=== PATIENT | female | born 1950 | race Caucasian/White ===

== ENCOUNTER → 2023-05-01 14:22 | Outpatient (REF) | payer MEDICARE, OTHER, SELFPAY | LOC: WDC 14:22 | PROVIDERS: ATTENDING PHYSICIAN Family Medicine | DX: Z12.31 Encounter for screening mammogram for malignant neoplasm of breast (principal) | CPT/HCPCS: 77063; 77067 ==

== ENCOUNTER 2023-06-23 03:57 | Emergency (ER) | payer MEDICARE, OTHER, SELFPAY ==
[2023-06-23 04:00] VITALS: BP 149/94
[2023-06-23 04:12] VITALS: BMI 26.4
[2023-06-23 04:23] VITALS: BP 139/88
[2023-06-23 04:33] LABS: % Basophils 0.6 % (0-2); % Eosinophils 1.7 % (0-6); % Immature Granulocytes 0.7 % (0-0.5); % Lymphocytes 14.5 % (20.5-51.1); % Monocytes 11.7 % (1.7-9.3); % Neutrophils 70.8 % (42.2-75.2); Absolute Basophils 0.1 10^3/uL (0-0.2); Absolute Eosinophils 0.2 10^3/uL (0-0.7); Absolute Immature Granulocytes 0.1 10^3/uL (0-0.05); Absolute Lymphocytes 1.6 10^3/uL (1.2-3.4); Absolute Monocytes 1.3 10^3/uL (0.1-0.6); Hematocrit 38.3 % (37.0-47.0); Hemoglobin 13.4 g/dL (12.0-16.0); Mean Corpuscular Volume 88.7 fL (81.0-99.0); Mean Platelet Volume 10.2 fL (7.4-10.4); Nucleated Red Blood Cells % 0 %; Platelet Count 223 10^3/uL (130-400); Red Blood Cell Count 4.32 10^6/uL (4.20-5.40); Red Cell Dist. Width 12.5 % (11.5-14.5); White Blood Cell Count 11.3 10^3/uL (4.8-10.8)
[2023-06-23 04:59] LABS: ALT (SGPT) 23 U/L (0-35); AST (SGOT) 30 U/L (14-36); Albumin 3.9 g/dl (3.5-5.0); Alkaline Phosphatase 70 U/L (38-126); Blood Urea Nitrogen 19 mg/dl (7-17); Calcium 9.9 mg/dl (8.4-10.2); Carbon Dioxide 28 mmol/L (22-30); Chloride 109 mmol/L (98-107); Estimated Creatinine Clearance 47 ml/min; Glucose 113 mg/dl (70-99); Lipase 70 U/L (23-300); Potassium 4.4 mmol/L (3.5-5.1); Sodium 139 mmol/L (135-145); Total Bilirubin 0.4 mg/dl (0.2-1.3); Total Protein 6.4 g/dl (6.3-8.2); eGFR > 60.00
[2023-06-23 05:00] VITALS: BP 131/79
[2023-06-23 05:55] LABS: Urine Albumin 1+ (Neg - Trace); Urine Bilirubin Negative (Negative); Urine Character Clear (Clear); Urine Color Straw; Urine Glucose Negative (Negative); Urine Ketone Negative (Negative); Urine Leukocyte Trace (Negative); Urine Nitrite Positive (Negative); Urine Occult Blood Negative (Negative); Urine Urobilinogen Negative (Neg - 1+)
[2023-06-23 06:00] VITALS: BP 132/80
--- NOTE | 2023-06-23 06:14 | ED.GENMED ---
History of Present Illness
General
Chief Complaint: Abdominal Pain
Source: patient
Time Seen by Provider: 06/23/23 06:02
Travel History
Have you had any contact with someone who has COVID-19?: No
Do you have any symptoms of coronavirus? Fever > 100 degrees, chills, cough, shortness of breath, sore throat, loss of taste or smell, muscle aches, or headache?: No
History of Present Illness
History of Present Illness:
73-year-old female presents to the emergency room complaining of abdominal pain. Patient began after dinner around 6 PM. Pain has been constant. It is fairly significant. Patient has nausea but has not vomited. Patient does have a surgical
history of a cholecystectomy a couple years ago as well and has a laparoscopic tubal ligation many years ago. She took Gas-X without any improvement.
Past History
Past History
ED Past Medical History: Asthma
ED Past Surgical History: Negative Cardiac
Social History
Tobacco: Non-smoker
Alcohol: None
Drug: None
Personal:
Living: with family
Employment: Retired
Family History
Family History: Negative Early CAD
Phy Exam
Physical Exam
Physical Exam:
General: Awake, Alert, Oriented X3. Patient peers uncomfortable
Vitals: unremarkable
Head: Atraumatic
Eyes: Pupils equal, EOMI
Throat: Airway intact, no exudates, dry mucosa
Neck: Trachea midline
Lungs: Clear and equal b/l
Heart: Regular rate, no murmurs
Abd: Soft, moderately tender to palpation but no rebound, No pulsatile mass
Neuro: Nonfocal
Skin: Warm, dry, no rash
Extremities: pulses equal b/l, no edema
Course
Orders/Labs/Results
Orders:
Orders
06/23/23 04:11
IV Insert/Care/Rem.- Treatment PRN
06/23/23 04:22
Complete Blood Count/With Diff Urgent
Comprehensive Metabolic Panel Urgent
Lipase Urgent
06/23/23 04:25
ECG [Electrocardiogram (*1)] Routine
Reason for Study: Abdominal Pain
06/23/23 04:26
EKG- Treatment ONCE
06/23/23 05:42
UA Reflex to Culture [Urinalysis Reflex To Culture] Urgent
Date Specimen was Collected: 06/23/23
Time Specimen was Collected: 05:40
Urine Microscopic Reflex Cult Urgent
Urine Culture Urgent
MAGALIS Source: U
Specimen Description:
Date Specimen was Collected: 06/23/23
Time Specimen was Collected: 05:40
06/23/23 06:13
0.9% Sodium Chloride 1000 ml [Nss] 1,000 ml IV BOLUS
HYDROmorphone [Dilaudid] 0.5 mg IV NOW STA
Iohexol [Omnipaque] See Protocol PO NOW STA
Ondansetron Injectable [Zofran] 4 mg IV NOW STA
06/23/23 06:14
CT Abd/pel W Iv And Oral Contr Urgent
Comment:
Reason For Exam: central abdominal pain
06/23/23 07:48
Ondansetron Injectable [Zofran] 4 mg .ROUTE .STK-MED ONE
06/23/23 07:49
Ondansetron Injectable [Zofran] 4 mg IV NOW STA
06/23/23 10:11
Lactulose [Duphalac/Chronulac] 20 grams PO NOW STA
06/23/23 11:08
Enema- Treatment ONCE
Type: Milk of Molasses
06/23/23 11:24
Ibuprofen [Motrin] 600 mg .ROUTE .STK-MED ONE
06/23/23 12:06
Ibuprofen [Motrin] 600 mg PO NOW STA
Abnormal Lab Results
06/23/23 06/23/23
04:22 05:42
WBC 11.3 H 10^3/uL
(4.8-10.8)
Abs Immat Gran (auto) 0.1 H 10^3/uL
(0-0.05)
Absolute Neuts (auto) 8.0 H 10^3/uL
(1.4-6.5)
Absolute Monos (auto) 1.3 H 10^3/uL
(0.1-0.6)
Immature Gran % 0.7 H %
(0-0.5)
Lymphocytes % 14.5 L %
(20.5-51.1)
Monocytes % 11.7 H %
(1.7-9.3)
Chloride 109 H mmol/L
(98-107)
BUN 19 H mg/dl
(7-17)
Glucose 113 H mg/dl
(70-99)
Urine Nitrite (Reflex) Positive A
(Negative)
Leukocyte Esterase Rfl Trace A
(Negative)
Urine Bacteria (Reflex) Moderate A
(Negative)
Urine Albumin (Reflex) 1+ A
(Neg - Trace)
06/23/23 04:22
06/23/23 04:22
Vital Signs
Initial and Last Documented VS:
Initial Vital Signs
Temp Pulse Resp BP Pulse Ox
98.1 F 85 24 149/94 98
06/23/23 04:00 06/23/23 04:00 06/23/23 04:00 06/23/23 04:00 06/23/23 04:00
Last Documented Vital Signs
Temp Pulse Resp BP Pulse Ox
98.1 F 85 24 115/75 93
06/23/23 04:00 06/23/23 04:00 06/23/23 04:00 06/23/23 08:00 06/23/23 08:45
MDM/Problems Addressed
Differential Diagnosis Includes:
Diverticulitis, small bowel obstruction, colitis
MDM/Problems Addressed:
Patient's labs are reassuring. CT does not show any acute inflammatory disease. My personal review of the CAT scan noted stool throughout the large intestine. I suspect the patient's symptoms are related to constipation. Patient was given a dose
of lactulose and a delta molasses enema with significant results. Patient feels tremendously better. She is stable for discharge home.
*Radiology
Radiology exam reviewed: radiology read reviewed
*Pulse Oximetry
Patient hypoxic: no
*EKG
Interpreted by ED Provider?: Yes
Interpretation: normal
Heart Rate: 76
Rate: normal
Rhythm: sinus
[place]: normal axis
Interval: normal interval
QRS Pattern: normal QRS
Ischemia: no ischemia
*Mechanical Test Technician Interpretation
Rate: normal
Interpretation: normal
Heart Rate: 76
Rhythm: sinus
*Critical Care Note
Total Time (30-74mins, 75-104mins- exclusive of procedures): Not Applicable
ED Attending Note
-
Portions of this chart may have been created with voice recognition software.� Occasional wrong word or��sound alike� substitutions may have occurred due to the inherent limitations of voice recognition software.
Discharge Plan
Departure
Patient Disposition: Home (Routine Discharge)
Date of Disposition: 06/23/23
Time of Disposition: 13:22
Patient with high blood pressure during this ER visit?: No
Condition: Good
Discharge Problem:
Abdominal pain, Constipation
Instructions: Constipation, Adult (DC), Abdominal Pain
Prescriptions:
No Action
albuterol sulfate 2.5 MG/3 ML solution for nebulization
2.5 mg inhalation R Q4HPRN PRN (Reason: cough) Qty: 20 0RF
fluticasone furoate-vilanterol [Breo Ellipta] 100-25 mcg/dose Blister With Device
1 inh INHALATION DAILY
omeprazole 40 mg Capsule,Delayed Release(Dr/Ec)
40 mg PO DAILY
valacyclovir 1 gram Tablet
1 mg PO Q12 PRN (Reason: Breakouts)
sumatriptan succinate [Imitrex] 100 mg Tablet
100 mg PO DAILY PRN (Reason: Migraine)
docusate sodium [Colace] 100 mg Capsule
100 mg PO DAILY
albuterol sulfate [ProAir HFA] 90 mcg/actuation Hfa Aerosol Inhaler
1 puff INHALATION Q4
omega-3 fatty acids Capsule
1 cap PO DAILY
Spiriva with HandiHaler 18 mcg Capsule, W/Inhalation Device
1 cap INHALATION DAILY
magnesium malate, chelate 125 mg magnesium Capsule
250 mg PO Daily
oxycodone-acetaminophen 5-325 mg Tablet
1 tab PO Q4HPRN PRN (Reason: pain) Qty: 10 0RF
prochlorperazine maleate [Compazine] 10 mg tablet
10 mg PO TID PRN (Reason: nausea and vomiting) Qty: 10 0RF
Referrals:
Chica Fuentes DO [Family Provider] -
Activity Restrictions/Additional Instructions:
You were seen in the emergency room for abdominal pain. Fortunately your blood work and your CAT scan showed no evidence of a unstable or emergent process. There is no evidence for urinary tract infection. It does appear that you have stool
throughout your colon on the CAT scan suggesting constipation. I suggest starting MiraLAX 1 capful a day for the next several days. Call your family doctor.
Interventions
Interventions:
*Risk Screen - Suicide Last Done: 06/23/23 04:00
*General Assessment Last Done: 06/23/23 04:00
*Neglect/Abuse Screening Last Done: 06/23/23 04:00
ED- Fall Risk Assessment Last Done: 06/23/23 04:00
*ED COVID-19 Vaccine History Last Done: 06/23/23 04:00
SU-Nbkikw-Yloxpjejgd Assessment Last Done: 06/23/23 04:33
Discharge Date and Time
Print Language: [id number]
[2023-06-23] MEDS: ZOFRAN 4 MG IV ×2 (06:22→07:50)
[2023-06-23] MEDS: DILAUDID 0.5 MG IV (06:23)
[2023-06-23] MEDS: OMNIPAQUE 50 ML PO (06:27)
[2023-06-23] MEDS: NSS 1000 IV (06:27)
[2023-06-23 06:32] LABS: Urine Bacteria Moderate (Negative); Urine Red Blood Cell None Seen /HPF (0-2)
[2023-06-23 07:00] VITALS: BP 114/79
[2023-06-23 08:00] VITALS: BP 115/75
[2023-06-23] MEDS: DUPHALAC/CHRONULAC 20 GRAMS PO (11:18)
[2023-06-23] MEDS: MOTRIN 600 MG PO (12:09)
== END 2023-06-23 13:00 | disposition home or self-care (01) ==
LOC: EMR 03:57
PROVIDERS: Emergency Medicine; EMERGENCY PHYSICIAN Emergency Medicine; FAMILY PHYSICIAN Family Medicine
DX: R10.9 Unspecified abdominal pain (principal); J45.909 Unspecified asthma, uncomplicated; Z90.49 Acquired absence of other specified parts of digestive tract; Z98.51 Tubal ligation status
CPT/HCPCS: 99284; 96374; 96375; 96376; 96361; 74177; 80053; 81003; 81015; 83690; 85025; 87077; 87086; 87186; 93005; Q9967

== ENCOUNTER → 2023-07-16 07:31 | Outpatient (REF) | payer MEDICARE, OTHER, SELFPAY ==
[2023-07-16 08:16] LABS: % Basophils 1.4 % (0-2); % Eosinophils 2.5 % (0-6); % Immature Granulocytes 0.7 % (0-0.5); % Lymphocytes 29.1 % (20.5-51.1); % Monocytes 9.2 % (1.7-9.3); % Neutrophils 57.1 % (42.2-75.2); Absolute Basophils 0.1 10^3/uL (0-0.2); Absolute Eosinophils 0.2 10^3/uL (0-0.7); Absolute Immature Granulocytes 0.1 10^3/uL (0-0.05); Absolute Lymphocytes 2.1 10^3/uL (1.2-3.4); Absolute Monocytes 0.7 10^3/uL (0.1-0.6); Absolute Neutrophils 4.2 10^3/uL (1.4-6.5); Hematocrit 40.2 % (37.0-47.0); Hemoglobin 13.2 g/dL (12.0-16.0); Mean Corp Hgb Conc. 32.8 g/dL (33.0-37.0); Mean Corpuscular Hgb 30.8 pg (27.0-31.0); Mean Corpuscular Volume 93.7 fL (81.0-99.0); Mean Platelet Volume 10.3 fL (7.4-10.4); Nucleated Red Blood Cells % 0 %; Platelet Count 281 10^3/uL (130-400); Red Blood Cell Count 4.29 10^6/uL (4.20-5.40); Red Cell Dist. Width 12.5 % (11.5-14.5); White Blood Cell Count 7.3 10^3/uL (4.8-10.8)
[2023-07-16 09:01] LABS: ALT (SGPT) 18 U/L (0-35); AST (SGOT) 23 U/L (14-36); Albumin 3.9 g/dl (3.5-5.0); Alkaline Phosphatase 57 U/L (38-126); Blood Urea Nitrogen 17 mg/dl (7-17); Carbon Dioxide 31 mmol/L (22-30); Chloride 106 mmol/L (98-107); Glucose 99 mg/dl (70-99); HDL Cholesterol 80 mg/dl; LDL Cholesterol, Calculated 131 mg/dl; Potassium 4.9 mmol/L (3.5-5.1); Sodium 142 mmol/L (135-145); Total Bilirubin 0.5 mg/dl (0.2-1.3); Total Cholesterol 236 mg/dl (50-199); Total Protein 6.4 g/dl (6.3-8.2); Triglyceride 128 mg/dl (10-149); Very Low Density Lipoprotein 25 mg/dl (0-30); eGFR > 60.00
[2023-07-16 09:19] LABS: Vitamin D, 25-OH*** 48.5 ng/mL (30-80)
== END ==
LOC: REG 07:31
PROVIDERS: ATTENDING PHYSICIAN Family Medicine
DX: M81.0 Age-related osteoporosis without current pathological fracture (principal); K21.00 Gastro-esophageal reflux disease with esophagitis, without bleeding; Z13.220 Encounter for screening for lipoid disorders; Z79.899 Other long term (current) drug therapy
CPT/HCPCS: 36415; 80053; 80061; 82306; 85025

== ENCOUNTER → 2023-07-17 16:17 | Outpatient (REF) | payer MEDICARE, OTHER, SELFPAY ==
[2023-07-17 16:59] LABS: Urine Albumin Negative (Neg - Trace); Urine Bilirubin Negative (Negative); Urine Character Clear (Clear); Urine Color Straw; Urine Glucose Negative (Negative); Urine Ketone Negative (Negative); Urine Leukocyte 1+ (Negative); Urine Nitrite Negative (Negative); Urine Occult Blood Negative (Negative); Urine Specific Gravity 1.005 (<1.030); Urine Urobilinogen Negative (Neg - 1+)
[2023-07-17 17:11] LABS: Urine Squamous Cell 0-2 /LPF (Few)
[2023-07-17 17:12] LABS: Urine Red Blood Cell 0-2 /HPF (0-2)
[2023-07-17 17:14] LABS: Urine Bacteria Few (Negative)
== END ==
LOC: REG 16:17
PROVIDERS: ATTENDING PHYSICIAN Nurse Practitioner Family
DX: R35.0 Frequency of micturition (principal)
CPT/HCPCS: 81003; 81015; 87086

== ENCOUNTER → 2023-09-10 09:12 | Outpatient (REF) | payer MEDICARE, OTHER, SELFPAY ==
[2023-09-10 10:29] LABS: ALT (SGPT) 20 U/L (0-35); AST (SGOT) 23 U/L (14-36); Albumin 4.1 g/dl (3.5-5.0); Alkaline Phosphatase 56 U/L (38-126); Blood Urea Nitrogen 18 mg/dl (7-17); Calcium 10.1 mg/dl (8.4-10.2); Carbon Dioxide 29 mmol/L (22-30); Chloride 105 mmol/L (98-107); Glucose 102 mg/dl (70-99); Potassium 4.4 mmol/L (3.5-5.1); Sodium 140 mmol/L (135-145); Total Bilirubin 0.6 mg/dl (0.2-1.3); Total Protein 6.4 g/dl (6.3-8.2); eGFR > 60.00
[2023-09-10 11:50] LABS: Vitamin D, 25-OH*** 44.8 ng/mL (30-80)
== END ==
LOC: REG 09:12
PROVIDERS: ATTENDING PHYSICIAN Internal Medicine Rheumatology; FAMILY PHYSICIAN Family Medicine
DX: E55.9 Vitamin D deficiency, unspecified (principal); M81.0 Age-related osteoporosis without current pathological fracture
CPT/HCPCS: 36415; 80053; 82306

== ENCOUNTER 2023-10-07 06:29 | Day surgery (SDC) | payer MEDICARE, OTHER, SELFPAY ==
[2023-10-07] VITALS (13 sets, daily range): BP systolic 117–160; BP diastolic 75–119; BMI 25.6
[2023-10-07] MEDS: Pyridium 200 MG PO (11:31)
[2023-10-07] MEDS: NORMOSOL-R 1000 IV (12:06)
[2023-10-07] MEDS: SUBLIMAZE 50 MCG IV ×2 (15:09→15:31)
[2023-10-07] MEDS: DILAUDID 0.5 MG IV (15:47)
[2023-10-07] MEDS: ROXICODONE 5 MG PO (17:59)
== END 2023-10-07 19:30 | disposition home or self-care (01) ==
LOC: SDS 06:29
PROVIDERS: ATTENDING PHYSICIAN Obstetrics & Gynecology
DX: N81.2 Incomplete uterovaginal prolapse (principal); N39.3 Stress incontinence (female) (male); R39.15 Urgency of urination
CPT/HCPCS: 57282; 57250; 86850; 86900; 86901

== ENCOUNTER → 2024-01-06 08:28 | Outpatient (REF) | payer MEDICARE, OTHER, SELFPAY ==
[2024-01-06 09:32] LABS: Free T4 0.98 ng/dl (0.78-2.19)
[2024-01-06 09:46] LABS: TSH 2.48 uIU/ml (0.47-4.68)
== END ==
LOC: RAD 08:28
PROVIDERS: ATTENDING PHYSICIAN Family Medicine
DX: M25.562 Pain in left knee (principal); M25.561 Pain in right knee; R63.5 Abnormal weight gain
CPT/HCPCS: 36415; 73564; 84439; 84443

== ENCOUNTER → 2024-02-06 09:13 | Outpatient (REF) | payer MEDICARE, OTHER, SELFPAY | LOC: RAD 09:13 | PROVIDERS: ATTENDING PHYSICIAN Internal Medicine Rheumatology; FAMILY PHYSICIAN Family Medicine | DX: M81.0 Age-related osteoporosis without current pathological fracture (principal) | CPT/HCPCS: 77080 ==

== ENCOUNTER → 2024-02-27 08:57 | Outpatient (REF) | payer MEDICARE, OTHER, SELFPAY ==
[2024-02-27 09:55] LABS: % Basophils 1.7 % (0-2); % Eosinophils 2.6 % (0-6); % Immature Granulocytes 0.7 % (0-0.5); % Lymphocytes 26.1 % (20.5-51.1); % Monocytes 10.2 % (1.7-9.3); % Neutrophils 58.7 % (42.2-75.2); Absolute Basophils 0.1 10^3/uL (0-0.2); Absolute Eosinophils 0.2 10^3/uL (0-0.7); Absolute Immature Granulocytes 0.1 10^3/uL (0-0.05); Absolute Lymphocytes 1.8 10^3/uL (1.2-3.4); Absolute Monocytes 0.7 10^3/uL (0.1-0.6); Hematocrit 41.4 % (37.0-47.0); Hemoglobin 13.8 g/dL (12.0-16.0); Mean Corp Hgb Conc. 33.3 g/dL (33.0-37.0); Mean Corpuscular Hgb 30.9 pg (27.0-31.0); Mean Corpuscular Volume 92.6 fL (81.0-99.0); Mean Platelet Volume 10.4 fL (7.4-10.4); Nucleated Red Blood Cells % 0 %; Platelet Count 317 10^3/uL (130-400); Red Blood Cell Count 4.47 10^6/uL (4.20-5.40); Red Cell Dist. Width 12.6 % (11.5-14.5); White Blood Cell Count 6.9 10^3/uL (4.8-10.8)
[2024-02-27 11:09] LABS: ALT (SGPT) 18 U/L (0-35); AST (SGOT) 22 U/L (14-36); Albumin 4.2 g/dl (3.5-5.0); Alkaline Phosphatase 60 U/L (38-126); Blood Urea Nitrogen 19 mg/dl (7-17); Calcium 9.5 mg/dl (8.4-10.2); Carbon Dioxide 27 mmol/L (22-30); Chloride 103 mmol/L (98-107); Glucose 93 mg/dl (70-99); HDL Cholesterol 84 mg/dl; LDL Cholesterol, Calculated 169 mg/dl; Potassium 4.7 mmol/L (3.5-5.1); Sodium 139 mmol/L (135-145); Total Bilirubin 0.5 mg/dl (0.2-1.3); Total Cholesterol 274 mg/dl (50-199); Total Protein 6.8 g/dl (6.3-8.2); Triglyceride 108 mg/dl (10-149); Very Low Density Lipoprotein 21 mg/dl (0-30); eGFR > 60.00
[2024-02-27 11:16] LABS: Vitamin D, 25-OH*** 40.8 ng/mL (30-80)
[2024-02-27 13:13] LABS: Rheumatoid Agglutinin Less Than 10 IU (<10 IU)
[2024-02-28 23:55] LABS: ANA, IgG Reflex to HEp-2 None Detected (None Detected)
[2024-02-29 07:38] LABS: CCP Antibody IgG/IgA 7 Units (0-19)
== END ==
LOC: REG 08:57
PROVIDERS: ATTENDING PHYSICIAN Family Medicine; OTHER PHYSICIAN Internal Medicine Rheumatology
DX: M81.0 Age-related osteoporosis without current pathological fracture (principal); Z13.220 Encounter for screening for lipoid disorders; J44.9 Chronic obstructive pulmonary disease, unspecified; M25.69 Stiffness of other specified joint, not elsewhere classified; E78.89 Other lipoprotein metabolism disorders; R10.9 Unspecified abdominal pain
CPT/HCPCS: 36415; 80053; 80061; 82306; 85025; 86038; 86200; 86430

== ENCOUNTER → 2024-04-24 17:21 | Outpatient (REF) | payer MEDICARE, OTHER, SELFPAY | LOC: PAVMRI 17:21 | PROVIDERS: ATTENDING PHYSICIAN Physician Assistant Medical; FAMILY PHYSICIAN Family Medicine | DX: M25.561 Pain in right knee (principal) | CPT/HCPCS: 73721 ==

== ENCOUNTER → 2024-05-01 14:16 | Outpatient (REF) | payer MEDICARE, OTHER, SELFPAY | LOC: WDC 14:16 | PROVIDERS: ATTENDING PHYSICIAN Family Medicine | DX: Z12.31 Encounter for screening mammogram for malignant neoplasm of breast (principal) | CPT/HCPCS: 77063; 77067 ==

== ENCOUNTER → 2024-05-15 12:07 | Outpatient (REF) | payer MEDICARE, OTHER, SELFPAY | LOC: RAD 12:07 | PROVIDERS: ATTENDING PHYSICIAN Nurse Practitioner Family | DX: J44.9 Chronic obstructive pulmonary disease, unspecified (principal); R09.89 Other specified symptoms and signs involving the circulatory and respiratory systems; R05.1 Acute cough | CPT/HCPCS: 71046 ==

== ENCOUNTER → 2024-06-19 12:24 | Outpatient (REF) | payer MEDICARE, OTHER, SELFPAY ==
[2024-06-19 13:21] LABS: % Basophils 1.3 % (0-2); % Eosinophils 2.6 % (0-6); % Immature Granulocytes 0.5 % (0-0.5); % Lymphocytes 26.3 % (20.5-51.1); % Monocytes 9.3 % (1.7-9.3); Absolute Basophils 0.1 10^3/uL (0-0.2); Absolute Eosinophils 0.2 10^3/uL (0-0.7); Absolute Lymphocytes 2.1 10^3/uL (1.2-3.4); Absolute Monocytes 0.7 10^3/uL (0.1-0.6); Absolute Neutrophils 4.7 10^3/uL (1.4-6.5); Hematocrit 40.4 % (37.0-47.0); Hemoglobin 13.7 g/dL (12.0-16.0); Mean Corp Hgb Conc. 33.9 g/dL (33.0-37.0); Mean Corpuscular Hgb 31.1 pg (27.0-31.0); Mean Corpuscular Volume 91.8 fL (81.0-99.0); Mean Platelet Volume 10.5 fL (7.4-10.4); Nucleated Red Blood Cells % 0 %; Platelet Count 261 10^3/uL (130-400); White Blood Cell Count 7.8 10^3/uL (4.8-10.8)
[2024-06-19 13:55] LABS: Blood Urea Nitrogen 18 mg/dl (7-17); Calcium 9.5 mg/dl (8.4-10.2); Carbon Dioxide 30 mmol/L (22-30); Chloride 105 mmol/L (98-107); Glucose 96 mg/dl (70-99); Sodium 140 mmol/L (135-145); eGFR > 60.00
== END ==
LOC: RCS 12:24
PROVIDERS: ATTENDING PHYSICIAN Orthopaedic Surgery; FAMILY PHYSICIAN Family Medicine
DX: Z01.818 Encounter for other preprocedural examination (principal)
CPT/HCPCS: 36415; 80048; 85025; 93005

== ENCOUNTER → 2025-01-14 08:13 | Outpatient (REF) | payer MEDICARE, OTHER, SELFPAY ==
[2025-01-14 09:31] LABS: Hematocrit 41.7 % (37.0-47.0); Hemoglobin 13.4 g/dL (12.0-16.0); Mean Corp Hgb Conc. 32.1 g/dL (33.0-37.0); Mean Corpuscular Volume 95.6 fL (81.0-99.0); Nucleated Red Blood Cells % 0 %; Platelet Count 281 10^3/uL (130-400); Red Cell Dist. Width 12.9 % (11.5-14.5)
[2025-01-14 10:35] LABS: Vitamin D, 25-OH*** 49.7 ng/mL (30-80)
[2025-01-14 10:38] LABS: ALT (SGPT) 17 U/L (0-35); AST (SGOT) 19 U/L (14-36); Albumin 3.9 g/dl (3.5-5.0); Alkaline Phosphatase 51 U/L (38-126); Blood Urea Nitrogen 18 mg/dl (7-17); Calcium 9.1 mg/dl (8.4-10.2); Carbon Dioxide 31 mmol/L (22-30); Chloride 104 mmol/L (98-107); Glucose 92 mg/dl (70-99); HDL Cholesterol 73 mg/dl; LDL Cholesterol, Calculated 115 mg/dl; Potassium 4.2 mmol/L (3.5-5.1); Sodium 138 mmol/L (135-145); Total Protein 6.4 g/dl (6.3-8.2); Very Low Density Lipoprotein 23 mg/dl (0-30); eGFR > 60.00
== END ==
LOC: REG 08:13
PROVIDERS: ATTENDING PHYSICIAN Family Medicine
DX: M81.0 Age-related osteoporosis without current pathological fracture (principal); J44.9 Chronic obstructive pulmonary disease, unspecified; Z13.220 Encounter for screening for lipoid disorders; E78.5 Hyperlipidemia, unspecified
CPT/HCPCS: 36415; 80053; 80061; 82306; 85025